=== PATIENT | male | born 1960 | race Caucasian/White ===

== ENCOUNTER 2020-05-02 20:46 | Inpatient (IN) | payer BC, SELFPAY ==
[2020-05-02 20:48] VITALS: BP 176/100; PULSE 123; RESP 20; TEMP 38; O2SAT 99; BMI 28.8
[2020-05-02 20:51] VITALS: BP 176/100; PULSE 123; RESP 20; TEMP 38; O2SAT 99
--- NOTE | 2020-05-02 21:01 | CT_ITS ---
STUDY: CT BRAIN WITHOUT CONTRAST REASON FOR EXAM: Male, 59 years old. Dizziness. Shaking. Diaphoresis. Fever. RADIATION DOSAGE (If Supplied By Facility): CTDIvol = ( 44.99 ) mGy, DLP = ( 796.11 ) mGycm TECHNIQUE: Transaxial CT imaging of the brain was performed without administration of intravenous contrast material. Individualized dose optimization techniques were used for this CT. COMPARISON: No relevant priors. FINDINGS: Normal soft tissue structures. Normal calvarium. Normal size ventricles and extra-axial spaces for the patient''s age. Normal white matter tracts of the cerebral hemispheres. Normal basal ganglia and thalami. Normal brainstem. Normal cerebellum. There is no intracranial hemorrhage. There are no findings of an acute ischemic infarction. Normal visualized paranasal sinuses. CT/Brain/Head without Contrast IMPRESSION: No acute intracranial or calvarial abnormality. Electronically Signed: Samuel Membreno DO at 21:45 EST Tel [phone], Service support ,
--- NOTE | 2020-05-02 21:01 | EKG12_ITS ---
Test Reason : GEN ILLNESS Blood Pressure : / mmHG Vent. Rate : 111 BPM Atrial Rate : 111 BPM P-R Int : 178 ms QRS Dur : 084 ms QT Int : 328 ms P-R-T Axes : 053 -16 036 degrees QTc Int : 446 ms Sinus tachycardia with frequent Premature ventricular complexes Septal infarct , age undetermined Inferior infarct , age undetermined , cannot be excluded Abnormal ECG Confirmed by JERONIMO MOLINA, GONZALO ([id number]), commissioning editor WILMER RENE ([id number]) on 05/06/2020 2:43:16 PM Referred By: ROJELIO Confirmed By:GONZALO DECKER MD
[2020-05-02 21:12] LABS: Absolute Lymphocyte Count 0.36 X10^3/uL (0.83-4.51); Absolute Neutrophil Count 11.8 X10^3/uL (2.0-7.7); Basophil# 0.03 X10^3/uL; Basophil% 0.2 % (0-1); Hematocrit 44.2 % (40-54); Lymphocyte # 0.36 X10^3/ul (4.0); Lymphocyte % 2.8 % (19-41); Mean Corp Hgb Conc 33.9 g/dL (32-36); Mean Corpuscular Hgb 33.3 pg (27.0-32.0); Mean Corpuscular Volume 98.2 fL (80-94); Monocyte# 0.51 X10^3/uL; NRBC Flagged by Analyzer 0 % (0-5); Neutrophil # 11.77 X10^3/uL (2.7-7.7); Neutrophil % 92.1 % (47-70); POSITIVE DIFFERENTIAL YES; Platelet Count 112 K/mm3 (150-450); RBC Distribution Width CV 12.7 % (11.6-14.6); RBC Distribution Width SD 45.6 fl (35.1-43.9); White Blood Count 12.8 K/mm3 (4.4-11.0)
[2020-05-02 21:25] LABS: Differential Indicated SCAN CRITERIA MET
--- NOTE | 2020-05-02 21:27 | ED.DCSUM_ITS ---
- ER Visit Summary Date of Service: 05/02/20 Chief Complaint: Shaking History of Present Illness: The patient is a 59 M presenting to the ED for feeling shaky and not feeling well. Patient states he was at work and his coworkers called EMS because he did not look well. Patient states he feels dizzy and had near syncope. He denies chest pain or shortness of breath. He feels shaky all over. He had a temperature of 100.4 when he arrived but was not aware that he had a fever. He states he felt well yesterday. He states he is a moderate drinker and last drink was yesterday. He denies other complaints. Physical Examination: Vitals are stable. Temperature 100.4. Alert no acute distress. HEENT exam is unremarkable. Neck is supple. No meningismus Lungs are clear and equal bilaterally. Heart is regular and tachycardic Abdomen is soft nontender nondistended. No guarding or rebound Extremities are unremarkable. Skin is warm and dry. No rash No focal neurologic deficit. Normal strength and sensation Remainder of exam is unremarkable. Emergency Department Course and Treatment: EKG is sinus tachycardia rate of 111 with frequent PVCs. Patient was given Tylenol, IV fluids. CBC shows white count 12.8, platelet 112. Chemistries show sodium 135, glucose 176, creatinine 1.43. Total bili 2, AST 71. Troponin is negative. Alcohol negative. Tox negative. Covid is negative. CT head shows no acute intracranial or calvarial abnormality. Chest xray shows no acute process. Lactic acid 3.9. Patient was given additional IV fluids. Urinalysis shows 0-5 white blood cells, 2+ bacteria. Blood and urine cultures were sent. Patient was given Rocephin IV. Discussed with hospitalist for admission. Disposition: Admission Impression: Severe sepsis This note was generated with [employer] dictation software. It may contain incorrect words, spelling, and punctuation that were not noted in review of the chart prior to signing ED Disposition - Plan for ED Patient: Referrals: NOT,DEFINED [NON-STAFF] -
--- NOTE | 2020-05-02 21:27 | RAD_ITS ---
STUDY: X-RAY CHEST REASON FOR EXAM: Male, 59 years old. Fever TECHNIQUE: Frontal view COMPARISON: None. FINDINGS: The lungs are clear and expanded. There is no demonstrated pleural abnormality. Normal size heart. Normal mediastinum and orion. Normal visualized pulmonary arteries. Normal visualized aortic arch and descending thoracic aorta. Normal visualized thoracic spine. Normal visualized ribs, clavicles, and shoulders. There is no demonstrated abnormality of the visualized soft tissue structures of the upper abdomen. RAD/Chest 1 View (Portable) IMPRESSION: Normal x-ray examination of the chest. Electronically Signed: Denys Dominguez DO at 21:40 EST Tel [phone], Service support ,
[2020-05-02 21:32] LABS: ALB/GLOB Ratio 0.8 RATIO (0.9-2.4); AST(SGOT) 71 U/L (15-37); Alanine Aminotransfer ALT/SGPT 61 U/L (16-61); Albumin, Serum 3.9 g/dL (3.2-5.0); Alkaline Phosphatase 77 U/L (45-117); Anion Gap 10 (5-15); BUN 12 mg/dL (7-18); BUN/Creat Ratio 8.4 RATIO (10-20); Calcium,Total 9.1 mg/dL (8.5-10.1); Chloride 96 mmol/L (98-107); Creatinine, Serum 1.43 mg/dL (0.70-1.30); EST Glomerular Filtration Rate 54 mL/min (>60); Est Glom Filt Rate - Afr Amer 65 mL/min (>60); Estimated Creatinine Clearance 55.62 ml/min; Globulin 4.7 g/dL (2.2-4.2); Glucose 176 mg/dL (74-106); Potassium 3.5 mmol/L (3.5-5.1); Protein, Total 8.6 g/dL (6.4-8.2); Sodium Level 135 mmol/L (136-145)
[2020-05-02 21:44] LABS: Alcohol, Blood (Medical)-Serum < 3.0 mg/dL
[2020-05-02 21:51] VITALS: BP 142/105; PULSE 115; RESP 18; TEMP 37.2; O2SAT 98
[2020-05-02 22:00] VITALS: BP 142/105; PULSE 115; RESP 18; TEMP 37.2; O2SAT 98
[2020-05-02] MEDS: Acetaminophen 500 MG Tablet 1000 MG PO (22:03)
[2020-05-02 22:05] LABS: Mucous, Urine 0 SEEN /hpf (<or=2+); Red Blood Cells-Urine 0 SEEN /hpf (0-5); Squamous Epithelial Cells - UA 0 SEEN /hpf (0-5)
[2020-05-02 22:26] LABS: Color, Urine Yellow (Yellow); Glucose, Dipstick 250 mg/dl (Normal); Ketone-Dipstick 5 mg/dl (Negative); Leukocyte Esterase-Dipstick 25 /ul (Negative); Nitrite-Dipstick Negative (Negative); Occult Blood-Urine 150 /ul (Negative); Protein-Dipstick 100 mg/dl (Negative); Urine Bilirubin Dipstick Negative (Negative); Urine Clarity Clear (Clear); Urine Urobilinogen 4 mg/dl (Normal); Urine pH 6.5 (5.0 - 8.0)
[2020-05-02 22:37] LABS: Amphetamine Urine VISTA NEGATIVE (<1000 ng/mL); Barbiturate Urine VISTA NEGATIVE (< 200 ng/mL); Benzodiazepine Urine VISTA NEGATIVE (< 200 ng/mL); Cocaine Urine VISTA NEGATIVE (< 300 ng/mL); Ecstacy Urine VISTA NEGATIVE (< 500 ng/mL); Methadone Urine VISTA NEGATIVE (< 300 ng/mL); PCP Urine VISTA NEGATIVE (< 25 ng/mL); THC Urine VISTA NEGATIVE (< 50 ng/mL); Vista UDS pH Range 6
[2020-05-02 22:42] LABS: Bacteria 2+ /hpf (None Seen); Hyaline Cast 0-5 SEEN /lpf (0-5); White Blood Cells 0-5 SEEN /hpf (0-5)
[2020-05-02 22:45] LABS: Lactic Acid 3.9 mmol/L (0.4-1.9)
[2020-05-02 23:00] VITALS: BP 160/89; PULSE 107; RESP 20; TEMP 37.2; O2SAT 96
[2020-05-02] MEDS: 0.9% Normal Saline 1,000 ML 999 ML IV (23:23)
[2020-05-02 23:29] VITALS: BP 160/89; PULSE 107; RESP 21; TEMP 37; O2SAT 96
--- NOTE | 2020-05-02 23:44 | PCM.HP.STD ---
Problem List (1) Severe sepsis Status: Acute (2) Alcohol withdrawal Status: Acute History of Present Illness Date of Admission: 05/02/20 Chief Complaint: Tremors The patient is a 59 year old M with a significant history of alcoholism who presents emergency department with tremors. His symptoms started several hours before presentation. His symptoms has been progressively worsening. Associated with his symptom is diaphoresis. Reported at one point he bent down and felt light headed. 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 His work mates saw the patient was looking bad. Patient reportedly drinks 3 to 6 twelve ounce beer per day. Last time he drank was a day before presentation. Reportedly at the emergency department he nearly fell when he was helped out of his bed. He denied any urinary symptoms. At the emergency part the patient had a T-max of 100.4 Fahrenheit. He had a tachycardia and tachypnea. His white count was 12.8. His lactic acid was 3.9. His creatinine was 1.43 and his total bilirubin was 2. Past Medical History Medical History: Medical History (Last Updated 05/02/20 @ 23:[address] Don Greene MD) Denies previous medical history Allergies No Known Allergies Allergy (Verified 05/02/20 20:51) Home Medications: Ambulatory Orders Medication Instructions Recorded NK 05/02/20 Surgical History: no surgical history Smoking Status: Former smoker Alcohol: Heavy - *Family History Maternal History Items: Hypertension Paternal History Items: Cancer Review of Systems Constitutional: Denies: Chills, Fever, Weight Change HEENT: Denies: Head Aches, Sinus Congestion, Sinus Drainage Cardiovascular: Denies: Chest Pain, Palpitations Respiratory: Denies: Cough, Shortness of breath at rest, Sputum production Gastrointestinal: Denies: Abdominal Pain, Nausea, Vomiting Genitourinary: Denies: Dysuria Musculoskeletal: Denies: Joint Pain, Joint Tenderness Skin: Denies: Rash, Wounds Neurological: Reports: Tremor. Denies: Focal weakness, Numbness, Tingling Psychiatric: Denies: Anxiety, Depression, Homicidal Ideations, Suicidal Ideations Hematologic/ Lymphatic: Denies: Easy Bruising, Easy Bleeding VTE Information - Inpt Only VTE Present on Admission: No VTE Mechan Device Prophylaxis: None VTE Pharm Prophylaxis ordered?: Yes Patient Problems: Active and Suspected Problems (Last Updated 05/02/20 @ 23:[address] Don Greene MD) Severe sepsis (Acute) Alcohol withdrawal (Acute) - Physical Exam Vitals/I&O's: Vital Signs Temp Pulse Resp BP Pulse Ox 98.6 F 107 H 21 H 160/89 H 96 05/02/20 23:29 05/02/20 23:29 05/02/20 23:29 05/02/20 23:29 05/02/20 23:29 Oxygen Delivery Method Room Air Weight: 88.4 kg Body Mass Index (BMI) 28.8 Intake and Output for Last 24 Hours 04/30/20 05/01/20 05/02/20 23:59 23:59 23:59 Intake Total 500 / 500 Balance 500 / 500 General: Alert, Oriented x3, Cooperative HEENT: Atraumatic, PERRLA, EOMI, Normocephalic Neck: Supple, No JVD, Negative Carotid Bruits Lungs: Clear to auscultation, Normal air movement, Tachypneic Cardiovascular: Normal S1, Normal S2, No murmurs, Tachycardic Abdomen: Bowel Sounds Present, Soft, Non Tender Extremities: No edema, Capillary Refill Less than 3 Seconds Skin: No rashes, No breakdown Musculoskeletal: No Tenderness to Palpation of Joints or Extremities Neurological: Cranial nerves II-XII grossly intact, - - Tremulous Psych/Mental Status: Normal Affect, Appropriate Microbiology Past 72 Hours 05/02/20 21:09 Mucosa - Nose SARS-CoV-2 Antigen (Rapid) - Final Laboratory Results 05/02/20 20:34: WBC 12.8 H, RBC 4.50 L, Hgb 15.0, Hct 44.2, MCV 98.2 H, MCH 33.3 H, MCHC 33.9, RDW Std Deviation 45.6 H, RDW Coeff of Sheila 12.7, Plt Count 112 L, MPV 10.0, Immature Gran % (Auto) 0.900, Neut % (Auto) 92.1 H, Lymph % (Auto) 2.8 L, [place] % (Auto) 4.0, Eos % (Auto) 0.0, Baso % (Auto) 0.2, Absolute Neuts (auto) 11.8 H, Absolute Lymphs (auto) 0.36 L, Nucleated RBC % 0 05/02/20 20:34: Sodium 135 L, Potassium 3.5, Chloride 96 L, Carbon Dioxide 29.0, Anion Gap 10, BUN 12, Creatinine 1.43 H, Estim Creat Clear Calc 55.62, Est GFR (MDRD) Af Amer 65, Est GFR (MDRD) Non-Af 54 L, BUN/Creatinine Ratio 8.4 L, Glucose 176 H, Calcium 9.1, Total Bilirubin 2.00 H, AST 71 H, ALT 61, Alkaline Phosphatase 77, Troponin I < 0.015, Total Protein 8.6 H, Albumin 3.9, Globulin 4.7 H, Albumin/Globulin Ratio 0.8 L 05/02/20 21:09: Ethyl Alcohol < 3.0 05/02/20 21:38: Lactic Acid 3.9 H* 05/02/20 21:58: Urine Color Yellow, Urine Clarity Clear, Urine pH 6.5, Ur Specific [place] 1.010, Urine Protein 100 H, Urine Glucose (UA) 250 H, Urine Ketones 5 H, Urine Occult Blood 150 H, Urine Nitrite Negative, Urine Bilirubin Negative, Urine Urobilinogen 4 H, Ur Leukocyte Esterase 25 H, Urine RBC 0 SEEN, Urine WBC 0-5 SEEN, Ur Squamous Epith Cells 0 SEEN, Urine Bacteria 2+, Hyaline Casts 0-5 SEEN, Urine Mucus 0 SEEN 05/02/20 21:58: Urine Opiates Screen NEGATIVE, Urine Methadone Screen NEGATIVE, Ur Barbiturates Screen NEGATIVE, Ur Phencyclidine Scrn NEGATIVE, Ur Amphetamines Screen NEGATIVE, U Methamphetamin-MDMA NEGATIVE, U Benzodiazepines Scrn NEGATIVE, Urine Cocaine Screen NEGATIVE, U Cannabinoids Screen NEGATIVE, Ur Drug Screen Comment Current Medications Sodium Chloride () 1,000 mls @ 999 mls/hr IV .Q1H1M [facility] Stop: 05/03/20 01:10 Last Admin: 05/02/20 23:23 Dose: 999 mls/hr Documented by: Sodium Chloride () 1,000 mls @ 999 mls/hr IV .Q1H1M ONE Stop: 05/03/20 00:20 Sodium Chloride () 250 mls @ 999 mls/hr IV .Q16M [facility] Stop: 05/02/20 23:45 Ceftriaxone Sodium 2 gm/ (Sodium Chloride) 50 mls @ 100 mls/hr IV X1 ONE Stop: 05/02/20 23:51 Last Admin: 05/02/20 23:32 Dose: 100 mls/hr Documented by: Assessment/Plan All Active Problems (Last Updated 05/02/20 @ 23:[address] Don Greene MD) Severe sepsis (Acute) Alcohol withdrawal (Acute) The patient is a 59 year old M with a significant history of alcoholism who presents emergency department with tremors; diaphoresis and malaise was found to have tachycardia; tachypnea; fever of 100.4 Fahrenheit and abnormal urinalysis.. Alcohol withdrawal Patient is very tremulous on examination. Will start patient on Precedex and will admit patient to the intensive care unit. Frequent CIWA checks Folic acid and thiamine ordered. Multivitamin ordered. Director Of Gift Planning consult. Severe sepsis secondary to UTI. Review of Emergency department labs showed abnormal urinalysis. His urine is dark. His symptoms more likely from alcohol withdrawal. However with an abnormal urinalysis and markers of SIRS and lactic acid of 3.9 patient was started on ceftriaxone at the emergency department. Ceftriaxone continued. Received normal saline bolus at the emergency department. Urine culture and blood culture was ordered emergency department; follow. Rapid Covid at emergency department was negative. Radiologist impression of chest x-ray: Normal x-rays admission the chest. Chest x-ray was independently viewed. I agree with radiologist interpretation. Trend lactic acid Elevated creatinine Creatinine on presentation was 1.43. BUN 12. Community records were reviewed. No records found. No previous records on file in hospital system. Normal saline bolus at emergency department. Maintenance normal saline infusion ordered. Elevated liver enzymes and hyperbilirubinemia Likely secondary to alcoholism and stress Trend CMP. DVT prophylaxis Subcutaneous Lovenox. Inpatient E&M: [id number] Init Hosp L3
[2020-05-03] VITALS (23 sets, daily range): BP systolic 101–161; BP diastolic 58–92; PULSE 61–102; RESP 15–22; TEMP 36.6–37.6; O2SAT 94–99; BMI 28.0
[2020-05-03] MEDS: 0.9% Normal Saline 1,000 ML 999 ML IV (00:36)
[2020-05-03] MEDS: 0.9% Normal Saline 1,000 ML 100 ML IV ×3 (01:10→22:29)
[2020-05-03 01:45] LABS: Reflex Lactate? Y
[2020-05-03 02:33] LABS: Lactic Acid 1.1 mmol/L (0.4-1.9)
[2020-05-03] MEDS: TITRATION PARAMETER CHANGE 1 EACH IV (03:02)
[2020-05-03 04:11] LABS: Absolute Lymphocyte Count 0.37 X10^3/uL (0.83-4.51); Absolute Neutrophil Count 6.4 X10^3/uL (2.0-7.7); Basophil# 0.02 X10^3/uL; Basophil% 0.3 % (0-1); Eosinophil# 0.06 X10^3/uL; Eosinophils% 0.8 % (0-5); Hematocrit 36.4 % (40-54); Hemoglobin 12.1 g/dL (13.0-16.5); Lymphocyte # 0.37 X10^3/ul (4.0); Lymphocyte % 5.1 % (19-41); Mean Corp Hgb Conc 33.2 g/dL (32-36); Mean Corpuscular Hgb 32.9 pg (27.0-32.0); Mean Corpuscular Volume 98.9 fL (80-94); Monocyte# 0.38 X10^3/uL; Monocyte% 5.2 % (0-10); NRBC Flagged by Analyzer 0 % (0-5); Neutrophil # 6.35 X10^3/uL (2.7-7.7); Neutrophil % 87.8 % (47-70); POSITIVE COUNT YES; POSITIVE DIFFERENTIAL YES; Platelet Count 83 K/mm3 (150-450); RBC Distribution Width CV 12.8 % (11.6-14.6); RBC Distribution Width SD 46.5 fl (35.1-43.9); Red Blood Count 3.68 M/mm3 (4.6-6.2); White Blood Count 7.2 K/mm3 (4.4-11.0)
[2020-05-03 04:30] LABS: ALB/GLOB Ratio 0.8 RATIO (0.9-2.4); AST(SGOT) 50 U/L (15-37); Alanine Aminotransfer ALT/SGPT 45 U/L (16-61); Alkaline Phosphatase 60 U/L (45-117); Anion Gap 7 (5-15); BUN 11 mg/dL (7-18); BUN/Creat Ratio 13.6 RATIO (10-20); Calcium,Total 7.8 mg/dL (8.5-10.1); Chloride 103 mmol/L (98-107); Creatinine, Serum 0.81 mg/dL (0.70-1.30); EST Glomerular Filtration Rate 104 mL/min (>60); Est Glom Filt Rate - Afr Amer 126 mL/min (>60); Estimated Creatinine Clearance 98.19 ml/min; Globulin 3.6 g/dL (2.2-4.2); Glucose 103 mg/dL (74-106); Potassium 3.4 mmol/L (3.5-5.1); Protein, Total 6.6 g/dL (6.4-8.2); Sodium Level 138 mmol/L (136-145)
[2020-05-03 04:35] LABS: Differential Indicated SCAN CRITERIA MET
[2020-05-03 04:40] LABS: Differential Comment SCANNED; Platelet Estimate MOD DEC (ADEQ)
[2020-05-03] MEDS: Phenobarbital 32.4 MG Tablet 97.2 MG PO ×5 (06:56→22:29)
--- NOTE | 2020-05-03 07:29 | CON.PCM_ITS ---
Problem List (1) Severe sepsis Status: Acute (2) Alcohol withdrawal Status: Acute Qualifiers: Complication of substance-induced condition: with perceptual disturbance Qualified Code(s): F10.232 - Alcohol dependence with withdrawal with perceptual disturbance Reason for Consult Date of Consultation: 05/03/20 Reason for Consultation: Alcohol withdrawal History of Present Illness: The patient is a 59 year old M, with no reported past medical history, who presented to [facility] on 05/02/2020 after feeling shaky and unwell. Patient reportedly had EMS called by his coworkers secondary to not looking well. Patient had reported dizziness and near syncope. Patient had denied any chest pain or shortness of breath, but was reportedly having chills. Patient was noted to have a temperature of 100.4 ?F when he arrived. Patient reportedly is a moderate drinker of 6-12 beers per day and had not drank for approximately 24 hours. In the ER, patient was noted to be tachycardic on EKG and was given Tylenol and IV fluids. Patient did have a leukocytosis of 12.8, glucose of 176 and creatinine of 1.43. Alcohol level was negative along with tox screen. CT of the head showed no intracranial abnormality. Chest x-ray was within normal limits. Patient was found to have a lactate of 3.9 and was given additional IV fluids. Urinalysis had shown 2+ bacteria, so the patient was given 1 dose of IV Rocephin and admitted to the hospital for further evaluation. Given patient's alcohol history, the patient was initiated on Precedex therapy. Patient reportedly had been confused over the night in the intensive care unit. This morning, patient remains tremulous. Patient is on Precedex therapy. Patient reports that he has had a similar type of presentation in the past. Patient went through medical stabilization was able to abstain from alcohol for approximately 3 years. 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 Patient does state that he is willing to attempt abstaining from alcohol again. Patient is unclear if he had any seizure activity associated with his last episode of withdrawal. Review of systems otherwise negative from a constitutional, HEENT, respiratory, cardiovascular, GI, genitourinary, musculoskeletal, skin, neurologic, psychiatric and hematologic system unless stated above. Past Medical History Medical History: Medical History (Last Updated 05/02/20 @ 23:[address] Don Greene MD) Denies previous medical history Allergies No Known Allergies Allergy (Verified 05/02/20 20:51) Home Medications: Ambulatory Orders Medication Instructions Recorded NK 05/02/20 Surgical History: no surgical history Smoking Status: Former smoker Alcohol: Heavy - *Family History Maternal History Items: Hypertension Paternal History Items: Cancer Review of Systems Comment: See HPI Patient Problems: Active and Suspected Problems (Last Updated 05/02/20 @ 23:[address] Don Greene MD) Severe sepsis (Acute) Alcohol withdrawal (Acute) Objective: All imaging was personally reviewed. Agree with formal interpretation. Patient does not have any echocardiogram or PFT available for review at this time. - Physical Exam Vitals/I&O's: Vital Signs Temp Pulse Resp BP Pulse Ox 36.9 C 62 18 132/86 H 97 05/03/20 04:00 05/03/20 07:00 05/03/20 07:00 05/03/20 07:00 05/03/20 07:00 Oxygen Delivery Method Room Air Weight: 86.1 kg Body Mass Index (BMI) 28.0 Intake and Output for Last 24 Hours 05/01/20 05/02/20 05/03/20 23:59 23:59 23:59 Intake Total 500 / 500 2359.84 / 2359.84 Output Total 150 / 150 Balance 500 / 500 2209.84 / 2209.84 General: Alert, Cooperative, - - Active tremor noted. HEENT: Atraumatic, PERRLA, EOMI, Normocephalic, - - No scleral icterus. Some injection noted. Oral: Moist Mucosa, No Gingival or Mucosal Lesions/ Ulcerations Neck: Supple, No JVD, No Nodes, Trachea Midline Lungs: Clear to auscultation, Normal air movement, No rhonchi, No wheeze, No rales Cardiovascular: Normal S1, Normal S2, No murmurs, No rub noted, No Gallop, Tachycardic Abdomen: Bowel Sounds Present, Soft, Non Tender, Non-Distended Extremities: No clubbing, No cyanosis, No edema, Capillary Refill Less than 3 Seconds Skin: No rashes, No breakdown, - - No telangiectasias noted Musculoskeletal: No Tenderness to Palpation of Joints or Extremities Lymphatic: No Cervical, Supraclavicular, or Inguinal Adenopathy Neurological: Cranial nerves II-XII grossly intact, Neuro grossly intact, - - Significant psychomotor agitation. Sensation is intact. Motor is symmetrical Psych/Mental Status: Anxious, Impulsive, Restless Microbiology Past 72 Hours 05/02/20 21:09 Mucosa - Nose SARS-CoV-2 Antigen (Rapid) - Final Laboratory Results 05/02/20 20:34: WBC 12.8 H, RBC 4.50 L, Hgb 15.0, Hct 44.2, MCV 98.2 H, MCH 33.3 H, MCHC 33.9, RDW Std Deviation 45.6 H, RDW Coeff of Sheila 12.7, Plt Count 112 L, MPV 10.0, Immature Gran % (Auto) 0.900, Neut % (Auto) 92.1 H, Lymph % (Auto) 2.8 L, [place] % (Auto) 4.0, Eos % (Auto) 0.0, Baso % (Auto) 0.2, Absolute Neuts (auto) 11.8 H, Absolute Lymphs (auto) 0.36 L, Nucleated RBC % 0 05/02/20 20:34: Sodium 135 L, Potassium 3.5, Chloride 96 L, Carbon Dioxide 29.0, Anion Gap 10, BUN 12, Creatinine 1.43 H, Estim Creat Clear Calc 55.62, Est GFR (MDRD) Af Amer 65, Est GFR (MDRD) Non-Af 54 L, BUN/Creatinine Ratio 8.4 L, Glucose 176 H, Calcium 9.1, Total Bilirubin 2.00 H, AST 71 H, ALT 61, Alkaline Phosphatase 77, Troponin I < 0.015, Total Protein 8.6 H, Albumin 3.9, Globulin 4.7 H, Albumin/Globulin Ratio 0.8 L 05/02/20 21:09: Ethyl Alcohol < 3.0 05/02/20 21:38: Lactic Acid 3.9 H* 05/02/20 21:58: Urine Color Yellow, Urine Clarity Clear, Urine pH 6.5, Ur Specific [place] 1.010, Urine Protein 100 H, Urine Glucose (UA) 250 H, Urine Ketones 5 H, Urine Occult Blood 150 H, Urine Nitrite Negative, Urine Bilirubin Negative, Urine Urobilinogen 4 H, Ur Leukocyte Esterase 25 H, Urine RBC 0 SEEN, Urine WBC 0-5 SEEN, Ur Squamous Epith Cells 0 SEEN, Urine Bacteria 2+, Hyaline Casts 0-5 SEEN, Urine Mucus 0 SEEN 05/02/20 21:58: Urine Opiates Screen NEGATIVE, Urine Methadone Screen NEGATIVE, Ur Barbiturates Screen NEGATIVE, Ur Phencyclidine Scrn NEGATIVE, Ur Amphetamines Screen NEGATIVE, U Methamphetamin-MDMA NEGATIVE, U Benzodiazepines Scrn NEGATIVE, Urine Cocaine Screen NEGATIVE, U Cannabinoids Screen NEGATIVE, Ur Drug Screen Comment 05/03/20 02:00: Lactic Acid 1.1 05/03/20 04:00: WBC 7.2, RBC 3.68 L, Hgb 12.1 L, Hct 36.4 L, MCV 98.9 H, MCH 32.9 H, MCHC 33.2, RDW Std Deviation 46.5 H, RDW Coeff of Sheila 12.8, Plt Count 83 L, MPV 10.0, Immature Gran % (Auto) 0.800, Neut % (Auto) 87.8 H, Lymph % (Auto) 5.1 L, [place] % (Auto) 5.2, Eos % (Auto) 0.8, Baso % (Auto) 0.3, Absolute Neuts (auto) 6.4, Absolute Lymphs (auto) 0.37 L, Nucleated RBC % 0, Differential Comment SCANNED, Platelet Estimate MOD 05/03/20 04:00: Sodium 138, Potassium 3.4 L, Chloride 103, Carbon Dioxide 28.0, Anion Gap 7, BUN 11, Creatinine 0.81, Estim Creat Clear Calc 98.19, Est GFR (MDRD) Af Amer 126, Est GFR (MDRD) Non-Af 104, BUN/Creatinine Ratio 13.6, Glucose 103, Calcium 7.8 L, Total Bilirubin 1.10 H, AST 50 H, ALT 45, Alkaline Phosphatase 60, Total Protein 6.6, Albumin 3.0 L, Globulin 3.6, Albumin/Globulin Ratio 0.8 L Current Medications Acetaminophen (Acetaminophen 325 Mg Tablet) 650 mg PO Q6H PRN PRN PRN Reason: Pain Score 1-10/Temp > 100.7 F Enoxaparin Sodium (Enoxaparin 40 Mg/0.4 Ml Syringe) 40 mg SC DAILY [facility] Folic Acid (Folic Acid 1 Mg Tablet) 1 mg PO DAILY@0800 ANNY Stop: 05/05/20 08:01 Sodium Chloride () 1,000 mls @ 100 mls/hr IV .Q10H ANNY Last Admin: 05/03/20 01:10 Dose: 100 mls/hr Documented by: Ceftriaxone Sodium 2 gm/ (Sodium Chloride) 50 mls @ 100 mls/hr IV Q24@2200 ANNY Dexmedetomidine HCl 400 mcg/ (Sodium Chloride) 100 mls @ 10.763 mls/hr CONT INF .Q9H18M [facility]; Protocol Last Titration: 05/03/20 07:00 Dose: 0.5 mcg/kg/hr, 10.8 mls/hr Documented by: Sodium Chloride () 250 mls @ 15 mls/hr IV .[id number] PRN PRN Reason: Saline Flush Sodium Chloride () 250 mls @ 15 mls/hr IV .[id number] PRN PRN Reason: Additional IVPB Infusion Multivitamins/Minerals (Multivitamins,Ther W-Minerals Tablet) 1 tablet PO DAILYCM [facility] Ondansetron HCl (Ondansetron 4 Mg/2 Ml Vial) 4 mg IV Q8H PRN PRN PRN Reason: NAUSEA/VOMITING Phenobarbital (Phenobarbital 32.4 Mg Tablet) 97.2 mg PO Q4H [facility]; Taper Stop: 05/07/20 14:29 Last Admin: 05/03/20 06:56 Dose: 97.2 mg Documented by: Sodium Chloride (0.9% Saline Lock 10 Ml Syringe) 10 - 40 ml IV UD PRN PRN Reason: SALINE FLUSH Thiamine HCl (Thiamine Hydrochloride 100 Mg Tablet) 100 mg PO BIDCM [facility] Stop: 05/05/20 17:01 Clinical Impression(s) from Imaging Studies Brain CT 05/02/20 21:01 IMPRESSION: No acute intracranial or calvarial abnormality. Electronically Signed: Samuel Membreno DO at 21:45 EST Tel [phone], Service support , Chest X-Ray 05/02/20 21:27 IMPRESSION: Normal x-ray examination of the chest. Electronically Signed: Denys Dominguez DO at 21:40 EST Tel [phone], Service support , Assessment/Plan Active and Suspected Problems (Last Updated 05/02/20 @ 23:[address] Don Greene MD) Severe sepsis (Acute) Alcohol withdrawal (Acute) RECOMMENDATIONS: 1. Initiate phenobarbital taper 2. Wean Precedex as tolerated 3. Continue empiric antibiotics pending culture data 4. Consider evaluation by physical therapy for balance issues 5. Social work for recovery support 6. Continue CICO protocol 7. Likely okay to transfer out of the intensive care unit once off Precedex therapy IMPRESSIONS: 1. Acute alcohol withdrawal Patient significantly tremulous on presentation. Patient still tremulous despite Precedex therapy. Patient is asking to be discharged so we can make it to work tomorrow, but anticipate symptomatology to get worse before it gets better. Patient will be initiated on a phenobarb taper. Unclear if presentation with lactic acidosis and fever secondary to withdrawal more than acute UTI. Continue with CIWA protocol. Wean Precedex as tolerated. Likely okay to leave the intensive care unit once off of Precedex. Will need social work to assist with alcohol recovery options. Significant bradycardia has been noted with Precedex therapy. 2. Acute kidney injury Resolved. Presenting creatinine of 1.43. This morning's lab would suggest that this was acute. Patient was described as volume depleted on prese ntation. We will continue to hydrate through his recovery. 3. Possible UTI Patient with minimal leukocyte esterase and negative nitrites on UA. Patient did have bacteria without squamous cells. Cannot exclude an element of cystitis. Cultures have been sent. Reasonable to continue with antibiotics for 3 days. Inpatient E&M: 23269 Init Hosp L3
--- NOTE | 2020-05-03 08:12 | PN_ITS ---
Patient Problems: Active and Suspected Problems (Last Updated 05/02/20 @ 23:[address] Don Greene MD) Severe sepsis (Acute) Alcohol withdrawal (Acute) Reason for Visit: Follow-up on acute alcohol withdrawal/hypokalemia/acute kidney injury Subjective: Patient seen and examined. He is off Precedex. His last CIWA score 10. Denies chest pain, dizziness, or palpitations. Objective: Physical exam: General: Alert, Oriented x3, Cooperative HEENT: Atraumatic, PERRLA, EOMI, Normocephalic Neck: Supple, No JVD, Negative Carotid Bruits Lungs: Clear to auscultation, Normal air movement, Tachypneic Cardiovascular: Normal S1, Normal S2, No murmurs, Tachycardic Abdomen: Bowel Sounds Present, Soft, Non Tender Extremities: No edema, Capillary Refill Less than 3 Seconds Skin: No rashes, No breakdown Musculoskeletal: No Tenderness to Palpation of Joints or Extremities Neurological: Cranial nerves II-XII grossly intact, - - Tremulous Psych/Mental Status: Normal Affect, Appropriate Vitals/I&O's: Vital Signs Temp Pulse Resp BP Pulse Ox 98.5 F 62 18 132/86 H 97 05/03/20 04:00 05/03/20 07:00 05/03/20 07:00 05/03/20 07:00 05/03/20 07:00 Oxygen Delivery Method Room Air Weight: 86.1 kg Body Mass Index (BMI) 28.0 Intake and Output for Last 24 Hours 05/01/20 05/02/20 05/03/20 23:59 23:59 23:59 Intake Total 500 / 500 2359.84 / 2359.84 Output Total 150 / 150 Balance 500 / 500 2209.84 / 2209.84 Microbiology Past 72 Hours 05/02/20 21:09 Mucosa - Nose SARS-CoV-2 Antigen (Rapid) - Final Laboratory Results 05/02/20 20:34: WBC 12.8 H, RBC 4.50 L, Hgb 15.0, Hct 44.2, MCV 98.2 H, MCH 33.3 H, MCHC 33.9, RDW Std Deviation 45.6 H, RDW Coeff of Sheila 12.7, Plt Count 112 L, MPV 10.0, Immature Gran % (Auto) 0.900, Neut % (Auto) 92.1 H, Lymph % (Auto) 2.8 L, [place] % (Auto) 4.0, Eos % (Auto) 0.0, Baso % (Auto) 0.2, Absolute Neuts (auto) 11.8 H, Absolute Lymphs (auto) 0.36 L, Nucleated RBC % 0 05/02/20 20:34: Sodium 135 L, Potassium 3.5, Chloride 96 L, Carbon Dioxide 29.0, Anion Gap 10, BUN 12, Creatinine 1.43 H, Estim Creat Clear Calc 55.62, Est GFR (MDRD) Af Amer 65, Est GFR (MDRD) Non-Af 54 L, BUN/Creatinine Ratio 8.4 L, Glucose 176 H, Calcium 9.1, Total Bilirubin 2.00 H, AST 71 H, ALT 61, Alkaline Phosphatase 77, Troponin I < 0.015, Total Protein 8.6 H, Albumin 3.9, Globulin 4.7 H, Albumin/Globulin Ratio 0.8 L 05/02/20 21:09: Ethyl Alcohol < 3.0 05/02/20 21:38: Lactic Acid 3.9 H* 05/02/20 21:58: Urine Color Yellow, Urine Clarity Clear, Urine pH 6.5, Ur Specific [place] 1.010, Urine Protein 100 H, Urine Glucose (UA) 250 H, Urine Ketones 5 H, Urine Occult Blood 150 H, Urine Nitrite Negative, Urine Bilirubin Negative, Urine Urobilinogen 4 H, Ur Leukocyte Esterase 25 H, Urine RBC 0 SEEN, Urine WBC 0-5 SEEN, Ur Squamous Epith Cells 0 SEEN, Urine Bacteria 2+, Hyaline Casts 0-5 SEEN, Urine Mucus 0 SEEN 05/02/20 21:58: Urine Opiates Screen NEGATIVE, Urine Methadone Screen NEGATIVE, Ur Barbiturates Screen NEGATIVE, Ur Phencyclidine Scrn NEGATIVE, Ur Amphetamines Screen NEGATIVE, U Methamphetamin-MDMA NEGATIVE, U Benzodiazepines Scrn NEGATIVE, Urine Cocaine Screen NEGATIVE, U Cannabinoids Screen NEGATIVE, Ur Drug Screen Comment 05/03/20 02:00: Lactic Acid 1.1 05/03/20 04:00: WBC 7.2, RBC 3.68 L, Hgb 12.1 L, Hct 36.4 L, MCV 98.9 H, MCH 32.9 H, MCHC 33.2, RDW Std Deviation 46.5 H, RDW Coeff of Sheila 12.8, Plt Count 83 L, MPV 10.0, Immature Gran % (Auto) 0.800, Neut % (Auto) 87.8 H, Lymph % (Auto) 5.1 L, [place] % (Auto) 5.2, Eos % (Auto) 0.8, Baso % (Auto) 0.3, Absolute Neuts (auto) 6.4, Absolute Lymphs (auto) 0.37 L, Nucleated RBC % 0, Differential Comment SCANNED, Platelet Estimate MOD 05/03/20 04:00: Sodium 138, Potassium 3.4 L, Chloride 103, Carbon Dioxide 28.0, Anion Gap 7, BUN 11, Creatinine 0.81, Estim Creat Clear Calc 98.19, Est GFR (MDRD) Af Amer 126, Est GFR (MDRD) Non-Af 104, BUN/Creatinine Ratio 13.6, Glucose 103, Calcium 7.8 L, Total Bilirubin 1.10 H, AST 50 H, ALT 45, Alkaline Phosphatase 60, Total Protein 6.6, Albumin 3.0 L, Globulin 3.6, Albumin/Globulin Ratio 0.8 L Current Medications Acetaminophen (Acetaminophen 325 Mg Tablet) 650 mg PO Q6H PRN PRN PRN Reason: Pain Score 1-10/Temp > 100.7 F Enoxaparin Sodium (Enoxaparin 40 Mg/0.4 Ml Syringe) 40 mg SC DAILY [facility] Folic Acid (Folic Acid 1 Mg Tablet) 1 mg PO DAILY@0800 [facility] Stop: 05/05/20 08:01 Sodium Chloride () 1,000 mls @ 100 mls/hr IV .Q10H [facility] Last Admin: 05/03/20 01:10 Dose: 100 mls/hr Documented by: Ceftriaxone Sodium 2 gm/ (Sodium Chloride) 50 mls @ 100 mls/hr IV Q24@2200 [facility] Dexmedetomidine HCl 400 mcg/ (Sodium Chloride) 100 mls @ 10.763 mls/hr CONT INF .[id number] [facility]; Protocol Last Titration: 05/03/20 07:00 Dose: 0.5 mcg/kg/hr, 10.8 mls/hr Documented by: Sodium Chloride () 250 mls @ 15 mls/hr IV .[id number] PRN PRN Reason: Saline Flush Sodium Chloride () 250 mls @ 15 mls/hr IV .[id number] PRN PRN Reason: Additional IVPB Infusion Multivitamins/Minerals (Multivitamins,Ther W-Minerals Tablet) 1 tablet PO DAILYCM [facility] Ondansetron HCl (Ondansetron 4 Mg/2 Ml Vial) 4 mg IV Q8H PRN PRN PRN Reason: NAUSEA/VOMITING Phenobarbital (Phenobarbital 32.4 Mg Tablet) 97.2 mg PO Q4H ANNY; Taper Stop: 05/07/20 14:29 Last Admin: 05/03/20 06:56 Dose: 97.2 mg Documented by: Sodium Chloride (0.9% Saline Lock 10 Ml Syringe) 10 - 40 ml IV UD PRN PRN Reason: SALINE FLUSH Thiamine HCl (Thiamine Hydrochloride 100 Mg Tablet) 100 mg PO BIDCM ANNY Stop: 05/05/20 17:01 STROKE Vital Signs/Narrative: Vital Signs Pulse Resp BP Pulse Ox 05/03/20 07:00 62 18 132/86 H 97 05/03/20 06:00 61 18 125/72 H 98 05/03/20 05:00 72 18 112/63 97 Medical Necessity - Tobacco Use Smoking Status: Former smoker Assessment/Plan All Active Problems (Last Updated 05/02/20 @ 23:[address] Don Greene MD) Severe sepsis (Acute) Alcohol withdrawal (Acute) 1. Severe alcohol withdrawal, improving, off Precedex. Started on Phenobarbital Will continue on alcohol withdrawal protocol, thiamine,folic acid 2. Acute kidney injury, pre-renal secondary to dehydration Admitting Cr was 1.43, Cr now is 0.81 Will continue on IVF 3. Hypokalemia, K 3.4, will replace, recheck in am 4. Lactic acidosis secondary to dehydration, admitting lactic acid was 3.9, repeat is 1.1 5. Elevated liver enzymes secondary to chronic alcohol use disorder, improving Will follow-up with repeat blood work 6. DVT PPx- Lovenox [place] Inpatient E&M: [id number] Subs Hosp L2
--- NOTE | 2020-05-03 11:00 | CASEMGMT ---
RN CM MANAGER PHOTO CM to room to meet with patient for initial transition planning/care coordination assessment. YOAV MORALES introduced self and role at [facility]. Pt voices understanding and consents to assessment at this time. Pt resting in bed in no distress at this time. Pt is A/O at this time and answers all questions appropriately. Care providers, pharmacy, and demographics verified/updated at this time. PCP: No PCP. Pt provided w/list of local PCP's and offered assistance w/getting established w/new PCP, but pt declines. Specialists: none Preferred Pharmacy: [facility] retail pharmacy, [facility] Insurance: [place] Prescription Benefit: Yes Living Will/HPOA: Pt does not currently have LW/HCPOA and declines info at this time. Pt made aware that he can contact SW as an out-pt and make appt in the future if he decides he would like to talk with someone about this or would like to utilize [facility] social work for advanced directive completion. Given [employer] card with information and contact number. Pt expresses understanding. LNOK: Has 4 adult children, none of which are listed on demographics as contacts. Pt states he does not wish to have them listed. Pt's significant other, Esha Rowland, lives with him and she is listed as only contact. Living Arrangements: Lives w/Esha, significant other, in 2-story home w/3 steps to enter. Independent @ home. Works full-time @ [employer] Transportation: Pt states drives self and states no transportation concerns at this time. Esha also drives and will take him home @ discharge. DME: Denies using any DME and denies needs. HHC/SNF: No history of either and no needs identified. Denies need for HHC or OP therapy. Pt wishes to return home and states has no concerns with going home at time of discharge. CM to follow for any discharge planning/needs. Pt voices no concerns/needs at this time. Advised pt to ask for CM if any questions/concerns/needs arise. Voices understanding. PLAN: Home SW to see pt for ETOH use. Alexus HERNÁNDEZ RN, CM
[2020-05-03] MEDS: Potassium Chloride Oral Tablet 20 MEQ 60 MEQ PO (11:17)
[2020-05-03] MEDS: Enoxaparin 40 MG/0.4 ML Syringe SC (11:18)
[2020-05-03] MEDS: Folic Acid 1 MG Tablet PO (11:18)
[2020-05-03] MEDS: Thiamine Hydrochloride 100 MG Tablet PO ×2 (11:19→18:23)
[2020-05-03] MEDS: Multivitamins,Ther W-Minerals Tablet 1 TABLET PO (11:19)
--- NOTE | 2020-05-03 12:35 | CASEMGMT ---
Social Work SW met with pt and introduced self and role of SW to discuss alcohol use. Pt is A&O x3 and willing to speak with SW. Pt states that he is an alcoholic. Was able to stop drinking a few years ago and remained sober up until about 6-8 months ago. Pt states he went to a family gathering and had a beer and has been drinking since. Pt states he works second shift and when he returns home he drinks 3-6 beers nightly. Pt stating he wants to stop drinking again. Pt denies any drug abuse. SW discussed RAMP program with pt and he declined. SW educated pt on 180, [facility] and other addiction resources however, pt declined as well. Pt did allow SW to leave resources in room. Pt states he did go to AA meetings while he was sober and this was very helpful. SW left a list of area AA meetings with pt as well. Pt denies any other needs at this time. Pt aware that SW is available should he change his mind and want assistance with services. PAULY Armijo
[2020-05-03] MEDS: Acetaminophen 325 MG Tablet 650 MG PO (22:28)
[2020-05-04 03:00] VITALS: BP 146/71; PULSE 65; RESP 18; TEMP 37.5; O2SAT 98
[2020-05-04] MEDS: Phenobarbital 32.4 MG Tablet 97.2 MG PO ×3 (03:04→10:07)
[2020-05-04] MEDS: 0.9% Normal Saline 1,000 ML 100 ML IV (06:02)
[2020-05-04 06:41] LABS: Absolute Lymphocyte Count 0.72 X10^3/uL (0.83-4.51); Absolute Neutrophil Count 5.9 X10^3/uL (2.0-7.7); Basophil# 0.02 X10^3/uL; Basophil% 0.3 % (0-1); Eosinophil# 0.08 X10^3/uL; Eosinophils% 1.1 % (0-5); Hematocrit 37.5 % (40-54); Hemoglobin 12.2 g/dL (13.0-16.5); Lymphocyte # 0.72 X10^3/ul (4.0); Lymphocyte % 9.8 % (19-41); Mean Corp Hgb Conc 32.5 g/dL (32-36); Mean Corpuscular Hgb 32.3 pg (27.0-32.0); Mean Corpuscular Volume 99.2 fL (80-94); Mean Platelet Vol. 10.2 fl (6.2-12.0); Monocyte# 0.54 X10^3/uL; Monocyte% 7.3 % (0-10); NRBC Flagged by Analyzer 0 % (0-5); Neutrophil # 5.94 X10^3/uL (2.7-7.7); Neutrophil % 80.8 % (47-70); POSITIVE COUNT YES; Platelet Count 91 K/mm3 (150-450); RBC Distribution Width CV 12.5 % (11.6-14.6); RBC Distribution Width SD 45.5 fl (35.1-43.9); Red Blood Count 3.78 M/mm3 (4.6-6.2); White Blood Count 7.4 K/mm3 (4.4-11.0)
[2020-05-04 06:57] LABS: Differential Indicated SCAN CRITERIA MET
[2020-05-04 07:08] LABS: ALB/GLOB Ratio 0.7 RATIO (0.9-2.4); AST(SGOT) 45 U/L (15-37); Alanine Aminotransfer ALT/SGPT 44 U/L (16-61); Albumin, Serum 2.8 g/dL (3.2-5.0); Alkaline Phosphatase 60 U/L (45-117); Anion Gap 8 (5-15); BUN 9 mg/dL (7-18); BUN/Creat Ratio 15.1 RATIO (10-20); Chloride 102 mmol/L (98-107); EST Glomerular Filtration Rate 148 mL/min (>60); Est Glom Filt Rate - Afr Amer 179 mL/min (>60); Estimated Creatinine Clearance 132.56 ml/min; Globulin 3.8 g/dL (2.2-4.2); Glucose 78 mg/dL (74-106); Potassium 3.4 mmol/L (3.5-5.1); Protein, Total 6.6 g/dL (6.4-8.2); Sodium Level 135 mmol/L (136-145)
--- NOTE | 2020-05-04 07:10 | US_ITS ---
STUDY: ABDOMINAL ULTRASOUND - RIGHT UPPER QUADRANT REASON FOR VISIT: Male, 59 years old Elevated LFTs, h/o alcohol use disorder TECHNIQUE: Ultrasound evaluation of the right upper quadrant was performed with real-time and static morales-scale imaging. TECHNICAL QUALITY: Adequate. COMPARISON: None. FINDINGS: Liver: The liver measures 17.5 cm. There is increased echogenicity consistent with fatty infiltration. The bile ducts are within normal limits. There is hepatic color flow. The direction of portal flow is hepatopetal. There is no demonstrated mass lesion. Gallbladder: Normal distended gallbladder. The gallbladder wall measures 2 mm. There is a negative sonographic Brock''s sign. There is no pericholecystic fluid. There are no gallstones. Common Bile Duct (C.B.D.): The common bile duct measures 5 mm. Pancreas: Normal size of the head, body and tail of the pancreas. There is normal echogenicity of the pancreas. There is no demonstrated pancreatic mass or cyst. Right Kidney: Normal size of the right kidney. The right kidney measures 13.0 cm. Normal renal cortex. The right cortex measures 2.5 cm. 1.5 cm cyst in the midsection right kidney. There is no right hydronephrosis. US/Liver IMPRESSION: Fatty infiltration of the liver. Electronically Signed: Pedro Cooper MD at 8:15 EST Tel , Service support ,
[2020-05-04] MEDS: Thiamine Hydrochloride 100 MG Tablet PO (08:12)
[2020-05-04] MEDS: Potassium Chloride Oral Tablet 20 MEQ 40 MEQ PO (08:12)
[2020-05-04] MEDS: Folic Acid 1 MG Tablet PO (08:12)
[2020-05-04] MEDS: Multivitamins,Ther W-Minerals Tablet 1 TABLET PO (08:12)
--- NOTE | 2020-05-04 08:19 | PN_ITS ---
Subjective: Patient transferred out of the intensive care unit yesterday. Patient did well overnight and is currently on room air. Patient asking to go home. Patient does believe the phenobarb has been helpful with tremor. General: Alert, Oriented x3, Cooperative, No apparent distress, - - Less tremor today. Appears older than stated age. HEENT: Atraumatic, PERRLA, EOMI, Normocephalic, - - Glasses in place. No scleral icterus or injection noted Oral: Moist Mucosa, No Gingival or Mucosal Lesions/ Ulcerations Neck: Supple, No JVD, No Nodes, Trachea Midline Lungs: No rhonchi, No wheeze, No rales, Diminished Cardiovascular: Regular rate, Regular Rhythm, Normal S1, Normal S2, No murmurs, No rub noted, No Gallop Abdomen: Bowel Sounds Present, Soft, Non Tender, Non-Distended Extremities: No clubbing, No cyanosis, No edema Skin: No rashes, No breakdown Musculoskeletal: No Tenderness to Palpation of Joints or Extremities Lymphatic: No Cervical, Supraclavicular, or Inguinal Adenopathy Neurological: Cranial nerves II-XII grossly intact, Neuro grossly intact, Motor Exam 5/5 strength throughout Psych/Mental Status: Alert and oriented to time, place, person, mood and affect Vital Signs Temp Pulse Resp BP Pulse Ox 37.5 C H 65 18 146/71 H 98 05/04/20 03:00 05/04/20 03:00 05/04/20 03:00 05/04/20 03:00 05/04/20 03:00 Oxygen Delivery Method Room Air Weight: 86.3 kg Body Mass Index (BMI) 28.0 Intake and Output for Last 24 Hours 05/02/20 05/03/20 05/04/20 23:59 23:59 23:59 Intake Total 500 / 500 5430.90 / 5430.90 1255 / 1255 Output Total 150 / 150 Balance 500 / 500 5280.90 / 5280.90 1255 / 1255 Labs (Last 48 Hours) 05/02/20 05/02/20 05/02/20 20:34 20:34 21:09 WBC 12.8 H RBC 4.50 L Hgb 15.0 Hct 44.2 MCV 98.2 H MCH 33.3 H MCHC 33.9 RDW Std Deviation 45.6 H RDW Coeff of Sheila 12.7 Plt Count 112 L MPV 10.0 Immature Gran % (Auto) 0.900 Neut % (Auto) 92.1 H Lymph % (Auto) 2.8 L [place] % (Auto) 4.0 Eos % (Auto) 0.0 Baso % (Auto) 0.2 Absolute Neuts (auto) 11.8 H Absolute Lymphs (auto) 0.36 L Nucleated RBC % 0 Differential Comment Platelet Estimate Sodium 135 L Potassium 3.5 Chloride 96 L Carbon Dioxide 29.0 Anion Gap 10 BUN 12 Creatinine 1.43 H Estim Creat Clear Calc 55.62 Est GFR (MDRD) Af Amer 65 Est GFR (MDRD) Non-Af 54 L BUN/Creatinine Ratio 8.4 L Glucose 176 H Lactic Acid Calcium 9.1 Magnesium Total Bilirubin 2.00 H AST 71 H ALT 61 Alkaline Phosphatase 77 Troponin I < 0.015 Total Protein 8.6 H Albumin 3.9 Globulin 4.7 H Albumin/Globulin Ratio 0.8 L Urine Color Urine Clarity Urine pH Ur Specific [place] Urine Protein Urine Glucose (UA) Urine Ketones Urine Occult Blood Urine Nitrite Urine Bilirubin Urine Urobilinogen Ur Leukocyte Esterase Urine RBC Urine WBC Ur Squamous Epith Cells Urine Bacteria Hyaline Casts Urine Mucus Urine Opiates Screen Urine Methadone Screen Ur Barbiturates Screen Ur Phencyclidine Scrn Ur Amphetamines Screen U Methamphetamin-MDMA U Benzodiazepines Scrn Urine Cocaine Screen U Cannabinoids Screen Ur Drug Screen Comment Ethyl Alcohol < 3.0 05/02/20 05/02/20 05/02/20 21:38 21:58 21:58 WBC RBC Hgb Hct MCV MCH MCHC RDW Std Deviation RDW Coeff of Sheila Plt Count MPV Immature Gran % (Auto) Neut % (Auto) Lymph % (Auto) [place] % (Auto) Eos % (Auto) Baso % (Auto) Absolute Neuts (auto) Absolute Lymphs (auto) Nucleated RBC % Differential Comment Platelet Estimate Sodium Potassium Chloride Carbon Dioxide Anion Gap BUN Creatinine Estim Creat Clear Calc Est GFR (MDRD) Af Amer Est GFR (MDRD) Non-Af BUN/Creatinine Ratio Glucose Lactic Acid 3.9 H* Calcium Magnesium Total Bilirubin AST ALT Alkaline Phosphatase Troponin I Total Protein Albumin Globulin Albumin/Globulin Ratio Urine Color Yellow Urine Clarity Clear Urine pH 6.5 Ur Specific [place] 1.010 Urine Protein 100 H Urine Glucose (UA) 250 H Urine Ketones 5 H Urine Occult Blood 150 H Urine Nitrite Negative Urine Bilirubin Negative Urine Urobilinogen 4 H Ur Leukocyte Esterase 25 H Urine RBC 0 SEEN Urine WBC 0-5 SEEN Ur Squamous Epith Cells 0 SEEN Urine Bacteria 2+ Hyaline Casts 0-5 SEEN Urine Mucus 0 SEEN Urine Opiates Screen NEGATIVE Urine Methadone Screen NEGATIVE Ur Barbiturates Screen NEGATIVE Ur Phencyclidine Scrn NEGATIVE Ur Amphetamines Screen NEGATIVE U Methamphetamin-MDMA NEGATIVE U Benzodiazepines Scrn NEGATIVE Urine Cocaine Screen NEGATIVE U Cannabinoids Screen NEGATIVE Ur Drug Screen Comment Ethyl Alcohol 05/03/20 05/03/20 05/03/20 02:00 04:00 04:00 WBC 7.2 RBC 3.68 L Hgb 12.1 L Hct 36.4 L MCV 98.9 H MCH 32.9 H MCHC 33.2 RDW Std Deviation 46.5 H RDW Coeff of Sheila 12.8 Plt Count 83 L MPV 10.0 Immature Gran % (Auto) 0.800 Neut % (Auto) 87.8 H Lymph % (Auto) 5.1 L [place] % (Auto) 5.2 Eos % (Auto) 0.8 Baso % (Auto) 0.3 Absolute Neuts (auto) 6.4 Absolute Lymphs (auto) 0.37 L Nucleated RBC % 0 Differential Comment SCANNED Platelet Estimate MOD DEC Sodium 138 Potassium 3.4 L Chloride 103 Carbon Dioxide 28.0 Anion Gap 7 BUN 11 Creatinine 0.81 Estim Creat Clear Calc 98.19 Est GFR (MDRD) Af Amer 126 Est GFR (MDRD) Non-Af 104 BUN/Creatinine Ratio 13.6 Glucose 103 Lactic Acid 1.1 Calcium 7.8 L Magnesium Total Bilirubin 1.10 H AST 50 H ALT 45 Alkaline Phosphatase 60 Troponin I Total Protein 6.6 Albumin 3.0 L Globulin 3.6 Albumin/Globulin Ratio 0.8 L Urine Color Urine Clarity Urine pH Ur Specific [place] Urine Protein Urine Glucose (UA) Urine Ketones Urine Occult Blood Urine Nitrite Urine Bilirubin Urine Urobilinogen Ur Leukocyte Esterase Urine RBC Urine WBC Ur Squamous Epith Cells Urine Bacteria Hyaline Casts Urine Mucus Urine Opiates Screen Urine Methadone Screen Ur Barbiturates Screen Ur Phencyclidine Scrn Ur Amphetamines Screen U Methamphetamin-MDMA U Benzodiazepines Scrn Urine Cocaine Screen U Cannabinoids Screen Ur Drug Screen Comment Ethyl Alcohol 05/03/20 05/04/20 05/04/20 04:00 05:52 05:52 WBC 7.4 RBC 3.78 L Hgb 12.2 L Hct 37.5 L MCV 99.2 H MCH 32.3 H MCHC 32.5 RDW Std Deviation 45.5 H RDW Coeff of Sheila 12.5 Plt Count 91 L MPV 10.2 Immature Gran % (Auto) 0.700 Neut % (Auto) 80.8 H Lymph % (Auto) 9.8 L [place] % (Auto) 7.3 Eos % (Auto) 1.1 Baso % (Auto) 0.3 Absolute Neuts (auto) 5.9 Absolute Lymphs (auto) 0.72 L Nucleated RBC % 0 Differential Comment Platelet Estimate Sodium 135 L Potassium 3.4 L Chloride 102 Carbon Dioxide 25.0 Anion Gap 8 BUN 9 Creatinine 0.60 L Estim Creat Clear Calc 132.56 Est GFR (MDRD) Af Amer 179 Est GFR (MDRD) Non-Af 148 BUN/Creatinine Ratio 15.1 Glucose 78 Lactic Acid Calcium 8.0 L Magnesium 2.0 Total Bilirubin 1.20 H AST 45 H ALT 44 Alkaline Phosphatase 60 Troponin I Total Protein 6.6 Albumin 2.8 L Globulin 3.8 Albumin/Globulin Ratio 0.7 L Urine Color Urine Clarity Urine pH Ur Specific [place] Urine Protein Urine Glucose (UA) Urine Ketones Urine Occult Blood Urine Nitrite Urine Bilirubin Urine Urobilinogen Ur Leukocyte Esterase Urine RBC Urine WBC Ur Squamous Epith Cells Urine Bacteria Hyaline Casts Urine Mucus Urine Opiates Screen Urine Methadone Screen Ur Barbiturates Screen Ur Phencyclidine Scrn Ur Amphetamines Screen U Methamphetamin-MDMA U Benzodiazepines Scrn Urine Cocaine Screen U Cannabinoids Screen Ur Drug Screen Comment Ethyl Alcohol Microbiology 05/02/20 21:09 Mucosa - Nose SARS-CoV-2 Antigen (Rapid) - Final Clinical Impression(s) from Imaging Studies Liver Ultrasound 05/04/20 07:10 IMPRESSION: Fatty infiltration of the liver. Electronically Signed: Pedro Cooper MD at 8:15 EST Tel , Service support , Medical Necessity - Tobacco Use Smoking Status: Former smoker Assessment/Plan All Active Problems (Last Updated 05/02/20 @ 23:[address] Don Greene MD) Severe sepsis (Acute) Alcohol withdrawal (Acute) RECOMMENDATIONS: 1. Consider completion of phenobarb taper 2. Okay to continue empiric antibiotics to complete a 3-day course 3. Hemodynamically stable on room air. Will sign off from a critical care perspective IMPRESSIONS: 1. Acute alcohol withdrawal Patient significantly tremulous on presentation. Patient much improved after initiation of phenobarb taper. Continue with CIWA protocol. Otherwise, hemodynamically stable on room air. Will sign off from a critical care perspective 2. Acute kidney injury Resolved. Presenting creatinine of 1.43. This morning's lab would suggest that this was acute. Patient was described as volume depleted on presentation. We will continue to hydrate through his recovery. 3. Possible UTI Patient with minimal leukocyte esterase and negative nitrites on UA. Patient did have bacteria without squamous cells. Cannot exclude an element of cystitis. Cultures have been sent. Reasonable to continue with antibiotics for 3 days. Patient is not showing symptomatology consistent with pyelonephritis requiring an extended antibiotic course Inpatient E&M: [id number] Subs Hosp L2
[2020-05-04 08:50] VITALS: PULSE 88
[2020-05-04 08:54] VITALS: BP 139/79; PULSE 94; RESP 18; TEMP 36.6; O2SAT 96
--- NOTE | 2020-05-04 09:18 | DCINST_ITS ---
- Discharge Diagnoses Current Active Problems: Current Active and Chronic Problems (Last Updated 05/02/20 @ 23:[address] Don Greene MD) Severe sepsis (Acute) Alcohol withdrawal (Acute) Reason(s) for Visit for Discharge Instructions: Acute alcohol withdrawal You will use the following diet at home:: Regular Your food should be the consistency of: Regular Your liquids should be the consistency of: Regular/Thin Discharge Activity: Return to Normal Activity Additional Instructions: You are strongly advised to quit drinking. You are being discharged on 2 days of potassium. You need to establish with a primary care doctor and have your blood work done within 1 week. Allergies/Adverse Reactions: Allergies No Known Allergies Allergy (Verified 05/02/20 20:51) Medications to take at Discharge Acetaminophen [Tylenol Tablet] 650 mg PO Q6H PRN PRN tablet 05/04/20 Folic Acid 1 mg PO DAILY@0800 30 Days #30 tab 05/04/20 Potassium Chloride [Klor-Con 10] 20 meq PO DAILY 2 Days #4 tablet.er 05/04/20 Thiamine Hydrochloride [Vitamin B1] 100 mg PO BIDCM 30 Days #30 tab 05/04/20 The following prescriptions were given: Folic Acid 1 mg PO DAILY@0800 30 Days #30 tab Transmission Status: Pending to [id number] Potassium Chloride [Klor-Con 10] 20 meq PO DAILY 2 Days #4 tablet.er Transmission Status: Pending to [id number] Thiamine Hydrochloride [Vitamin B1] 100 mg PO BIDCM 30 Days #30 tab Transmission Status: Pending to [facility] Primary Care Physician: NOT,DEFINED [NON-STAFF] - Please follow up with your Primary Care Physician in: within 1 week Test Results: Test results from this visit will be discussed in further detail at your follow- up appointment, if applicable. Proposed Discharge Date: 05/04/20
--- NOTE | 2020-05-04 09:20 | DS.PCM_ITS ---
Discharge Date and Diagnosis - Problem List Patient Problems: Active and Suspected Problems (Last Updated 05/02/20 @ 23:[address] Don Greene MD) Severe sepsis (Acute) Alcohol withdrawal (Acute) Date of Admission: 05/02/20 Date of Discharge: 05/04/20 - Primary Discharge Diagnosis Acute Problems: Active Problems (Last Updated 05/02/20 @ 23:[address] Don Greene MD) Severe alcohol withdrawal Hypokalemia Acute kidney injury Elevated liver enzymes secondary to fatty liver from chronic alcohol use Hospital Course and Treatment Imaging Results: 05/04/20 07:10 Liver [US] Stat Clinical Impression(s) from Imaging Studies Brain CT 05/02/20 21:01 IMPRESSION: No acute intracranial or calvarial abnormality. Electronically Signed: Samuel Membreno DO at 21:45 EST Tel [phone], Service support , Chest X-Ray 05/02/20 21:27 IMPRESSION: Normal x-ray examination of the chest. Electronically Signed: Denys Dominguez DO at 21:40 EST Tel [phone], Service support , Liver Ultrasound 05/04/20 07:10 IMPRESSION: Fatty infiltration of the liver. Electronically Signed: Pedro Cooper MD at 8:15 EST Tel , Service support , None Operations: None Summary of Care Provided: The patient is a 59 year old M past medical history of chronic alcohol use disorder presents with tremors to the emergency department. Patient admitted that his symptoms started hours before presentation and had been getting worse, seated is diaphoresis and lightheadedness. Admits to drinking about 3-6 12 ounce beers a day. He stated that he last drank a day before presentation. Patient was found to have a low-grade fever of 100.4, he was tachycardic and tachypneic. His white cell count was 12.8, lactic acid was 3.6, creatinine 1.42, total bilirubin was 2. UA however was remarkable for 2+ bacteria, leukocyte Estrace 25, but nitrite was negative. He was admitted to ICU initially managed as severe sepsis secondary to probable UTI. He was also started on Precedex drip. He was seen the next day and antibiotics discontinued. He was transferred to the [facility] floor and managed on phenobarbital protocol with no acute events. Patient electrolytes were replaced. The next day, he continued to have hypokalemia, this was replaced. His liver enzymes improved but still show elevated total bilirubin. He underwent ultrasound of the liver that was positive for fatty liver. wire worker followed up, patient was seen interested in any of the addiction medicine resources including RAMP program. Patient was strongly counseled to quit drinking alcohol. He states that he will follow-up with the AA meetings. Patient Problems: Active and Suspected Problems (Last Updated 05/02/20 @ 23:[address] Don Greene MD) Severe sepsis (Acute) Alcohol withdrawal (Acute) Subjective: On the day of discharge, patient was seen and examined. He refused any RAMP or addiction services. He stated that he will follow-up with AA meetings. Objective: Physical exam: General: Alert, Oriented x3, Cooperative HEENT: Atraumatic, PERRLA, EOMI, Normocephalic Neck: Supple, No JVD, Negative Carotid Bruits Lungs: Clear to auscultation, Normal air movement, Tachypneic Cardiovascular: Normal S1, Normal S2, No murmurs, Tachycardic Abdomen: Bowel Sounds Present, Soft, Non Tender Extremities: No edema, Capillary Refill Less than 3 Seconds Skin: No rashes, No breakdown Musculoskeletal: No Tenderness to Palpation of Joints or Extremities Neurological: Cranial nerves II-XII grossly intact, - - Tremulous Psych/Mental Status: Normal Affect, Appropriate - Physical Exam Vitals/I&O's: Vital Signs Temp Pulse Resp BP Pulse Ox 97.9 F 94 18 139/79 H 96 05/04/20 08:54 05/04/20 08:54 05/04/20 08:54 05/04/20 08:54 05/04/20 08:54 Oxygen Delivery Method Room Air Weight: 86.3 kg Body Mass Index (BMI) 28.0 Intake and Output for Last 24 Hours 05/02/20 05/03/20 05/04/20 23:59 23:59 23:59 Intake Total 500 / 500 5430.90 / 5430.90 1255 / 1255 Output Total 150 / 150 Balance 500 / 500 5280.90 / 5280.90 1255 / 1255 Microbiology Past 72 Hours 05/02/20 21:09 Mucosa - Nose SARS-CoV-2 Antigen (Rapid) - Final Laboratory Results 05/04/20 05:52: WBC 7.4, RBC 3.78 L, Hgb 12.2 L, Hct 37.5 L, MCV 99.2 H, MCH 32.3 H, MCHC 32.5, RDW Std Deviation 45.5 H, RDW Coeff of Sheila 12.5, Plt Count 91 L, MPV 10.2, Immature Gran % (Auto) 0.700, Neut % (Auto) 80.8 H, Lymph % (Auto) 9.8 L, [place] % (Auto) 7.3, Eos % (Auto) 1.1, Baso % (Auto) 0.3, Absolute Neuts (auto) 5.9, Absolute Lymphs (auto) 0.72 L, Nucleated RBC % 0 05/04/20 05:52: Sodium 135 L, Potassium 3.4 L, Chloride 102, Carbon Dioxide 25.0, Anion Gap 8, BUN 9, Creatinine 0.60 L, Estim Creat Clear Calc 132.56, Est GFR (MDRD) Af Amer 179, Est GFR (MDRD) Non-Af 148, BUN/Creatinine Ratio 15.1, G lucose 78, Calcium 8.0 L, Total Bilirubin 1.20 H, AST 45 H, ALT 44, Alkaline Phosphatase 60, Total Protein 6.6, Albumin 2.8 L, Globulin 3.8, Albumin/Globulin Ratio 0.7 L Current Medications Acetaminophen (Acetaminophen 325 Mg Tablet) 650 mg PO Q6H PRN PRN PRN Reason: Pain Score 1-10/Temp > 100.7 F Last Admin: 05/03/20 22:28 Dose: 650 mg Documented by: Enoxaparin Sodium (Enoxaparin 40 Mg/0.4 Ml Syringe) 40 mg SC DAILY [facility] Last Admin: 05/03/20 11:18 Dose: 40 mg Documented by: Folic Acid (Folic Acid 1 Mg Tablet) 1 mg PO DAILY@0800 [facility] Stop: 05/05/20 08:01 Last Admin: 05/04/20 08:12 Dose: 1 mg Documented by: Sodium Chloride () 1,000 mls @ 100 mls/hr IV .Q10H [facility] Last Admin: 05/04/20 06:02 Dose: 100 mls/hr Documented by: Sodium Chloride () 250 mls @ 15 mls/hr IV .[id number] PRN PRN Reason: Saline Flush Sodium Chloride () 250 mls @ 15 mls/hr IV .[id number] PRN PRN Reason: Additional IVPB Infusion Multivitamins/Minerals (Multivitamins,Ther W[facility]Minerals Table[facility]) [facility] Last Admin: 05/04/20 08:12 Dose: 1 tablet Documented by: Ondansetron HCl (Ondansetron 4 Mg/2 Ml Vial) 4 mg IV Q8H PRN PRN PRN Reason: NAUSEA/VOMITING Phenobarbital (Phenobarbital 32.4 Mg Tablet) 97.2 mg PO Q4H [facility]; Taper Stop: 05/07/20 14:29 Last Admin: 05/04/20 06:02 Dose: 97.2 mg Documented by: Potassium Chloride (Potassium Chloride Oral Tablet 20 Meq) [facility] Last Admin: 05/04/20 08:12 Dose: 40 meq Documented by: Sodium Chloride (0.9% Saline Lock 10 Ml Syringe) 10 - 40 ml IV UD PRN PRN Reason: SALINE FLUSH Thiamine HCl (Thiamine Hydrochloride 100 Mg Tablet) [facility] Stop: 05/05/20 17:01 Last Admin: 05/04/20 08:12 Dose: 100 mg Documented by: Discharge Diet: No Restrictions Discharge Activity: Return to Normal Activity Home Medications: Medications to take at Discharge Acetaminophen [Tylenol Tablet] 650 mg PO Q6H PRN PRN tab 05/04/20 Folic Acid 1 mg PO DAILY@0800 30 Days #30 tab 05/04/20 Potassium Chloride [Klor-Con 10] 20 meq PO DAILY 2 Days #4 tablet.er 05/04/20 Thiamine Hydrochloride [Vitamin B1] 100 mg PO BIDCM 30 Days #30 tab 05/04/20 Following Prescriptions Were Given to Patient: Folic Acid 1 mg PO DAILY@0800 30 Days #30 tab Transmission Status: Received by ZELALEM [id number] Potassium Chloride [Klor-Con 10] 20 meq PO DAILY 2 Days #4 tablet.er Transmission Status: Received by ZELALEM MOLINA Thiamine Hydrochloride [Vitamin B1] 100 mg PO BIDCM 30 Days #30 tab Transmission Status: Received by ZELALEM PHILIPPE Primary Care Physician: NOT,DEFINED [NON-STAFF] - Please follow up with your Primary Care Physician in: within 1 week Disposition: Home Minutes spent on discharge:: 25 Patient Condition:: Stable Medical Necessity - Tobacco Use Smoking Status: Former smoker Tobacco Use: Non-smoker Meaningful Use Info Meaningful Use Diagnoses (Choose all that apply): None applicable Inpatient E&M: 33509 Disch Hosp
[2020-05-04 09:45] LABS: Platelet Estimate SLT DEC (ADEQ)
== END 2020-05-04 10:30 | disposition home or self-care (01) | DRG 897 ==
LOC: ED 21:29 → ICU 23:29 → MS3 05-03 12:13
PROVIDERS: Admitting Provider Hospitalist; Emergency Provider Emergency Medicine; Visit Provider Internal Medicine
DX: F10.239 Alcohol dependence with withdrawal, unspecified (principal); E87.2 Acidosis; N17.9 Acute kidney failure, unspecified; K70.0 Alcoholic fatty liver; E86.0 Dehydration; E87.6 Hypokalemia; Z20.822 Contact with and (suspected) exposure to COVID-19; Z87.891 Personal history of nicotine dependence
CPT/HCPCS: 36415; 70450; 71045; 76705; 80053; 80307; 81001; 82077; 83605; 83735; 84484; 85025; 87040; 87086; 87088; 87426; 93005; 97802; 99285; J7030; J0696